=== PATIENT | female | born 1975 | race Caucasian/White ===

== ENCOUNTER 2020-07-02 06:03 | Day surgery (SDC) | payer OTHER, SELFPAY ==
[2020-07-02 06:33] VITALS: BP 122/96; PULSE 64; RESP 16; TEMP 36.6; O2SAT 100; BMI 33.7
[2020-07-02] MEDS: Lactated Ringers 1,000 ML 100 ML IV (06:50)
--- NOTE | 2020-07-02 08:21 | OP.PCM_ITS ---
Problem List (1) Sensorineural hearing loss, unilateral, right ear, with unrestricted hearing on the contralateral side Status: Chronic Report of Operation Date of Procedure: 07/02/20 Pre-Operative Diagnosis: Unilateral sensorineural hearing loss on right Post-Operative Diagnosis: Same Surgery/Procedure Performed:: Implantation of osseointegrated hearing device, 12mm PONTO Description of Surgical Findings:: Cara is a 44-year-old female with a right sided sensorineural hearing loss with normal hearing in the contralateral ear. She was offered a bone-anchored hearing device for rehabilitation of this unilateral loss and was eager to proceed. The risk of coronavirus exposure in this time were also discussed and she was agreeable accept this risk in exchange for treatment of her underlying condition. The risks, alternatives, potential complications, and benefits were discussed at length and any questions answered to the patient and/or caregiver's satisfaction. Witnessed informed consent was obtained in the office, and the patient and/or caregiver was agreeable to proceed. Procedure went as follows: The patient was identified in the preoperative holding after site marking the right ear in accordance with the patient's history, office chart, and physical exam. The patient was then brought to the operating room and placed under general anesthesia and intubated. When appropriate anesthesia was obtained, the scalp was prepped and draped in usual sterile fashion. The abutment site was then marked 5 cm posterior to the external auditory meatus and injected with 1 mL of 1% lidocaine with 100,000 epinephrine. Using a 5 mm punch, the skin and subcutaneous tissues were incised and resected. The periosteum overlying the operative site was then removed sharply with an iris scissor. The airplane pilot drill hole was then created and palpated to ensure bone at the bottom depth of the hole and then finalized to 4 mm in size to allow for placement of the titanium abutment. The bony fragments were then suctioned and irrigated clear and the 4 x 12 mm abutment was then placed in accordance with the manufacture's directions. Xeroform gauze was then placed at the skin edge followed by the healing cap. The patient was then returned to anesthesia, was revived and extubated without complication having tolerated the procedure well. Type of Anesthesia:: General Anesthesiologist: Stevie Zheng Special Medications: none Specimen's removed: none Drains: none Estimated Blood Loss (mL): 0 mL Fluids Replaced: 800 mL Grafts/Implants Used: PONTO 12 mm abutment - Admit VTE Documentation VTE Present on Admission: No VTE Mechan Device Prophylaxis: SCD's VTE Pharm Prophylaxis ordered?: No
--- NOTE | 2020-07-02 08:27 | PCM.DC ---
- Discharge Diagnoses Current Active Problems: Current Active and Chronic Problems Sensorineural hearing loss, unilateral, right ear, with unrestricted hearing on the contralateral side (Chronic) You will use the following diet at home:: No restrictions Discharge Activity: Return to Normal Activity, May not drive while taking narcotic pain medications. Call your doctor if your incision/area has: Sudden Increased Bleeding, Increased Redness, Foul Smelling Discharge Call your doctor if you observe: Fever of 101 or Higher, Uncontrolled pain Allergies/Adverse Reactions: Allergies No Known Allergies Allergy (Verified 07/02/20 06:32) Medications to take at Discharge Amlodipine Besylate 5 mg PO DAILY 06/24/20 Cetirizine HCl [Zyrtec] 10 mg PO DAILY 06/24/20 Fluticasone 0.05% [Flonase Nasal Mio] 1 spray NASAL BID 06/24/20 Losartan Potassium 100 mg PO DAILY 06/24/20 Montelukast [Singulair] 10 mg PO QHS 06/24/20 Omeprazole 20 mg PO DAILY 06/24/20 Sertraline HCl 100 mg PO QHS 06/24/20 Sucralfate 1 gm PO QHS 06/24/20 Orders to be completed after discharge: COVID 19 AG RAPID (RN COLLECT) Time Frame: 07/01/20, Facility: [facility] [place], Location: Laboratory Primary Care Physician: Senait Franz MD [Primary Care Provider] - Test Results: Test results from this visit will be discussed in further detail at your follow-up appointment, if applicable. Please Follow Up With: Stevie Jarvis MD When: 1 week
[2020-07-02 08:31] VITALS: BP 112/62; BP 122/96; PULSE 87; RESP 14; TEMP 36.4; O2SAT 92
[2020-07-02 08:45] VITALS: BP 106/68; BP 122/96; PULSE 78; RESP 16; O2SAT 96
[2020-07-02 09:00] VITALS: BP 109/67; BP 122/96; PULSE 75; RESP 16; O2SAT 98
[2020-07-02 09:09] VITALS: BP 114/72; BP 122/96; PULSE 76; RESP 16; TEMP 36.7; O2SAT 100
[2020-07-02 10:06] VITALS: BP 109/74; BP 122/96; PULSE 81; RESP 16; TEMP 36.8; O2SAT 96
== END 2020-07-02 10:14 | disposition home or self-care (01) ==
LOC: SDC 06:04 → AC 06:05
PROVIDERS: PCP Family Medicine; Referring Provider Otolaryngology; Visit Provider Otolaryngology
PROC: (CPT 69710; principal; 2020-07-02 07:15)
DX: H90.41 Sensorineural hearing loss, unilateral, right ear, with unrestricted hearing on the contralateral side (principal); Z87.891 Personal history of nicotine dependence; K21.9 Gastro-esophageal reflux disease without esophagitis; I10 Essential (primary) hypertension
CPT/HCPCS: 00120; 69714; J7120; J2405

== ENCOUNTER 2020-10-01 06:11 | Day surgery (SDC) | payer OTHER, SELFPAY ==
[2020-10-01] VITALS (9 sets, daily range): BP systolic 107–133; BP diastolic 67–100; PULSE 72–80; RESP 16–18; TEMP 36.4–37; O2SAT 94–100; BMI 34.4
[2020-10-01] MEDS: Lactated Ringers 1,000 ML 100 ML IV ×2 (06:50→09:05)
[2020-10-01] MEDS: Lidocaine 1% /Epi 1:100 (20ml) 20 ML Vial (07:34)
--- NOTE | 2020-10-01 08:24 | OP.PCM_ITS ---
Problems Associated Problem List Diagnoses (1) Sensorineural hearing loss, unilateral, right ear, with unrestricted hearing on the contralateral side: Report of Operation Date of Procedure: 10/01/20 Pre-Operative Diagnosis: Right sensorineural hearing loss, loss of PONTO abut ment Post-Operative Diagnosis: Same Surgery/Procedure Performed:: Placement of right 12mm PONTO abutment and 4mm sleeper Description of Surgical Findings:: Cara is a 45-year-old female with a right sensorineural hearing loss who had a Ponto abutment placed that had failed to osteointegrate and she returns for replacement today. The risks, alternatives, potential complications, and benefits were discussed at length and any questions answered to the patient and/or caregiver's satisfaction. Witnessed informed consent was obtained in the office, and the patient and/or caregiver was agreeable to proceed. Procedure went as follows: The patient was identified in the preoperative holding after site marking the appropriate ear in accordance with the patient's history, office chart, and physical exam. The patient was then brought to the operating room and placed under general anesthesia and intubated. When appropriate anesthesia was obtained, the scalp was prepped and draped in usual sterile fashion. The abutment site was then marked 5 cm posterior to the external auditory meatus and injected with 1 mL of 1% lidocaine with 100,000 epinephrine. Using a 15 blade scalpel a 2 cm incision was then made in the skin and subcutaneous tissues were incised and retracted. The periosteum overlying the operative site was then removed elevated and a small retractor placed to allow visualization of the underlying bone. The previously created implant site was identified and leaving a 4 mm margin a new site was then chosen superiorly and anteriorly to the site. The implant hole was then created to allow for placement of the titanium abutment. The bony fragments were then suctioned and irrigated clear and the 4 x 12 mm abutment was then placed in accordance with the manufacture's directions. Posterior to the site leaving a 1 cm gap an additional 4 mm hole was then drilled followed by a sleeper implant in case of secondary failure of osteointegration. The wound was then closed with interrupted 3-0 Vicryl sutures followed by interrupted 5-0 Monocryl to the skin. Xeroform gauze was then placed at the skin edge followed by the healing cap. The patient was then returned to anesthesia, was revived and extubated without complication having tolerated the procedure well. Surgeon: Stevie Jarvis Type of Anesthesia: General/Regional Anesthesiologist: Sha Ortiz Specimen's removed: none Drains: none Estimated Blood Loss (mL): none Fluids Replaced: 200 mL Grafts/Implants Used: 12 mm PONTO abutment and sleeper Admit VTE Documentation VTE Present on Admission: No VTE Mechan Device Prophylaxis: SCD's VTE Pharm Prophylaxis ordered?: No Reason prophylaxis not ordered:: Procedure Not Indicated
--- NOTE | 2020-10-01 08:31 | PCM.DC ---
Discharge Instructions Diet Discharge Diet: No restrictions Activity Discharge Activity: Return to Normal Activity and May not drive while taking narcotic pain medications. Dressing / Incision Call your doctor if your incision/area has: Continuous Slow Oozing, Increased Pain/ Swelling and Foul Smelling Discharge Call your doctor if you observe: Fever of 101 or Higher and Uncontrolled pain Change Dressing in: 1 week Follow Up Care Please Follow Up With: Stevie Jarvis MD When: next week Test Results: Test results from this visit will be discussed in further detail at your follow-up appointment, if applicable. Discharge Plan Admission Attending Provider: Stevie Jarvis Primary Care Provider: Senait Franz Discharge Orders/Prescriptions Prescriptions: New hydrocodone-acetaminophen 5-325 mg Tablet 1 tab PO Q6H PRN PRN (Reason: Pain Score 6-10) 5 Days Qty: 10 RF: 0 Continued cetirizine 10 MG tablet 10 mg PO DAILY RF: 0 sucralfate 1 GM tablet 1 gm PO QHS RF: 0 sertraline 100 MG tablet 100 mg PO QHS RF: 0 amlodipine 5 MG tablet 5 mg PO DAILY RF: 0 omeprazole 20 MG capsule,delayed release(DR/EC) 20 mg PO DAILY RF: 0 montelukast 10 MG tablet 10 mg PO QHS RF: 0 losartan 100 MG tablet 100 mg PO DAILY RF: 0 fluticasone propionate 1 SPRAY spray,suspension 1 spray NASAL BID RF: 0 acetaminophen 500 MG tablet 500 mg PO Q4H PRN PRN (Reason: Pain Score 1-5/10) RF: 0 ibuprofen 200 MG tablet 400 mg PO Q6H PRN PRN (Reason: Pain Score 4-10/10) RF: 0 Albuteral Inhaler 1 - 2 puff OTHER PRN PRN (Reason: asthma) RF: 0 Referrals / Follow Up: Senait Franz MD [Primary Care Provider] - Disposition Discharge Orders: Discharge Patient (Routine); Ordered 10/01/20 Ordered By: Dr. Stevie Jarvis
== END 2020-10-01 10:33 ==
LOC: SDC 06:12 → AC 06:14
PROVIDERS: PCP Family Medicine; Referring Provider Otolaryngology; Visit Provider Otolaryngology
PROC: (CPT 69710; principal; 2020-10-01 07:15)
DX: H90.41 Sensorineural hearing loss, unilateral, right ear, with unrestricted hearing on the contralateral side (principal); K21.9 Gastro-esophageal reflux disease without esophagitis; E78.5 Hyperlipidemia, unspecified; I10 Essential (primary) hypertension; J45.909 Unspecified asthma, uncomplicated; Z97.3 Presence of spectacles and contact lenses; Z96.21 Cochlear implant status
CPT/HCPCS: 00120; 69930; J7120